=== PATIENT | male | born 1990 | race Caucasian/White ===

== ENCOUNTER 2018-07-19 12:51 | Emergency (ER) | payer OTHER ==
[2018-07-19] MEDS: LIDOCAINE 1% (MPF) 5 ML VIAL INJ (13:44)
== END 2018-07-19 15:26 | disposition home or self-care (01) ==
LOC: FTE 15:26
DX: S61.211A Laceration without foreign body of left index finger without damage to nail, initial encounter (principal); F17.210 Nicotine dependence, cigarettes, uncomplicated; W26.0XXA Contact with knife, initial encounter; Y92.9 Unspecified place or not applicable
CPT/HCPCS: 12001; 99282-25